=== PATIENT | male | born 1965 | race Caucasian/White ===

== ENCOUNTER 2021-01-12 22:44 | Emergency (ER) | payer OTHER ==
[~2021-01-12] VITALS: Wt 93.0 kg
[2021-01-12 23:17] LABS: BASO % 0.5 % (0.0-1.0); EOS # 0.3 10*3/uL (0.0-0.4); EOS % 3.2 % (1.0-4.0); HEMATOCRIT 43.7 % (42.0-52.0); LYMPH # 2.2 10*3/uL (1.3-4.4); LYMPH % 28.4 % (27.0-41.0); MEAN CELL VOLUME 87.1 fl (80.0-94.0); MEAN CORPUSCULAR HGB 28.7 pg (27.0-31.0); MEAN PLATELET VOLUME 9.1 fl (9.6-12.3); MONO # 0.7 10*3/uL (0.1-1.0); MONO % 9.2 % (3.0-9.0); NEUT # 4.5 10*3/uL (2.3-7.9); NEUT % 58.3 % (47.0-73.0); PLATELET COUNT AUTOMATED 214 10*3/uL (130-400); RED BLOOD COUNT 5.02 10*6/uL (4.50-5.90); RED CELL DISTRI WIDTH 15.5 % (0-14.5); WHITE BLOOD COUNT 7.7 10*3/uL (4.8-10.8)
[2021-01-12 23:32] LABS: ALBUMIN 3.6 gm/dl (3.1-4.5); ALKALINE PHOSPHATASE 65 U/L (45-117); BUN 17 mg/dl (7-24); CHLORIDE 102 mmol/L (98-107); CREATININE 1.23 mg/dL (0.70-1.30); POTASSIUM 3.6 mmol/L (3.5-5.1); SGOT/AST 17 IU/L (3-35); SGPT/ALT 26 U/L (12-78); SODIUM 136 mmol/L (136-145); TOTAL PROTEIN 7.6 gm/dL (6.4-8.2)
[2021-01-12 23:33] LABS: TROPONIN I < 0.015 ng/ml (<0.045)
[2021-01-13 02:10] LABS: THYROID STIM HORMONE (HS) 1.45 uIU/ml (0.358-4.75)
== END 2021-01-13 03:41 | disposition home or self-care (01) ==
LOC: ED 22:44
PROVIDERS: Emergency Medicine
DX: F10.920 Alcohol use, unspecified with intoxication, uncomplicated (principal); R55 Syncope and collapse; I10 Essential (primary) hypertension; Z88.0 Allergy status to penicillin; Y90.6 Blood alcohol level of 120-199 mg/100 ml

== ENCOUNTER 2024-08-26 15:54 | Emergency (ER) | payer BC ==
[~2024-08-26] VITALS: Wt 93.0 kg
[2024-08-26] MEDS ORDERED: SODIUM CHLORIDE 0.9% 1,000 ML IV ONE ×3 (16:00→16:12)
[2024-08-26 16:19] LABS: BASO # 0.1 10*3/uL (0.0-0.1); BASO % 0.6 % (0.0-1.0); EOS # 0.2 10*3/uL (0.0-0.4); EOS % 1.7 % (1.0-4.0); HEMATOCRIT 37.7 % (42.0-52.0); LYMPH # 2.7 10*3/uL (1.3-4.4); LYMPH % 25.2 % (27.0-41.0); MEAN CELL VOLUME 96.9 fl (80.0-94.0); MEAN CORPUSCULAR HGB 31.1 pg (27.0-31.0); MEAN CORPUSCULAR HGB CONC 32.1 g/dl (33.0-37.0); MEAN PLATELET VOLUME 9.2 fl (9.6-12.3); MONO # 0.8 10*3/uL (0.1-1.0); NEUT # 6.9 10*3/uL (2.3-7.9); NEUT % 64.6 % (47.0-73.0); PLATELET COUNT AUTOMATED 233 10*3/uL (130-400); RED BLOOD COUNT 3.89 10*6/uL (4.50-5.90); RED CELL DISTRI WIDTH 13.4 % (0-14.5); WHITE BLOOD COUNT 10.7 10*3/uL (4.8-10.8)
[2024-08-26 16:29] LABS: ACT PARTIAL THROMBO TIME 24.1 SECONDS (20.0-32.1)
[2024-08-26 16:42] LABS: BUN 17 mg/dl (9-23); CHLORIDE 104 mmol/L (98-107); ETHYL ALCOHOL 15.5 mg/dl (<3); POTASSIUM 3.8 mmol/L (3.4-5.1)
[2024-08-26] MEDS ORDERED: fentaNYL CITRATE 100 MCG/2 ML VIAL IV ONE (16:50)
== END 2024-08-26 17:05 | disposition short-term general hospital (02) ==
LOC: ED 15:54
PROVIDERS: Emergency Medicine
DX: S72.002A Fracture of unspecified part of neck of left femur, initial encounter for closed fracture (principal); S32.502A Unspecified fracture of left pubis, initial encounter for closed fracture; S32.592A Other specified fracture of left pubis, initial encounter for closed fracture; S37.23XA Laceration of bladder, initial encounter; T79.4XXA Traumatic shock, initial encounter; I25.10 Atherosclerotic heart disease of native coronary artery without angina pectoris; I10 Essential (primary) hypertension; Z88.0 Allergy status to penicillin; Z98.890 Other specified postprocedural states; W13.2XXA Fall from, out of or through roof, initial encounter; Y93.89 Activity, other specified; Y92.89 Other specified places as the place of occurrence of the external cause; Y99.8 Other external cause status